=== PATIENT | male | born 1985 | race African-American/Black ===

== ENCOUNTER 2017-07-22 11:10 | Emergency (ER) | payer BC ==
[2017-07-22] MEDS ORDERED: Aspirin 81 MG Tab.Chew PO ONE (11:22)
[2017-07-22] MEDS ORDERED: Sodium Chloride 0.9% 2.5 ML Syringe FLUSH PRN (11:22)
[2017-07-22] MEDS ORDERED: Sodium Chloride 0.9% 10 ML Syringe FLUSH PRN (11:22)
--- NOTE | 2017-07-22 11:26 | EDM.PDOC ---
ED HPI GENERAL MEDICAL PROBLEM - General Chief Complaint: Chest Pain Stated Complaint: CHEST PAIN Time Seen by Provider: 07/22/17 11:21 - History of Present Illness INITIAL COMMENTS - FREE TEXT/NARRATIVE: HISTORY AND PHYSICAL: History of present illness: The patient is a 31-year-old healthy male with no significant past medical history but who does have a history of tobacco use and presents with complaints of left chest pressure/pain that started at 2 AM. 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 He says the pain is fine when he rests but when he takes a deep breath it seems to intensify. He is not short of breath he has no abdominal pain he has had no diaphoresis nausea or vomiting. He said that initially when he was at work he thought it was related to a recent chiropractic manipulation and it was more musculoskeletal. The patient has been eating and drinking normally and took no medication for the pain prior to coming here. The patient has no history of hypertension cardiac disease or pulmonary disease and is unsure of his lipid panel. He has no family history. Currently in the ED he says he does not have the pain unless he takes a deep breath. He has no leg pain or swelling. The patient does admit that he drinks a lot of caffeinated products. The patient denies that he felt lightheaded dizzy or had any presyncope symptoms wall the chest pain was ongoing Review of systems: As per history of present illness and below otherwise all systems reviewed and negative. Past medical history: As per history of present illness and as reviewed below otherwise noncontributory. Surgical history: As per history of present illness and as reviewed below otherwise noncontributory. Social history: No reported history of drug or alcohol abuse. Family history: As per history of present illness and as reviewed below otherwise noncontributory. Physical exam: Gen.: Well-developed very athletically fit patient was nontoxic-appearing and speaking clearly and easily. Vital signs of the note by me. It has been noted that he is on the hypertensive side. The patient is very anxious with conversation in the room both with me the stencil cutter and nursing staff. HEENT: Atraumatic, normocephalic, pupils reactive, negative for conjunctival pallor or scleral icterus, mucous membranes moist, throat clear, neck supple, nontender, trachea midline. Lungs: Clear to auscultation, breath sounds equal bilaterally, chest nontender. Heart: S1S2, regular, negative for clicks, rubs, or JVD. Abdomen: Soft, nondistended, nontender. Negative for masses or hepatosplenomegaly. Negative for costovertebral tenderness. Pelvis: Stable nontender. Genitourinary: Deferred. Rectal: Deferred. Extremities: Atraumatic, negative for cords or calf pain. Neurovascular unremarkable. No pedal edema or leg asymmetry Neuro: Awake, alert, oriented. Cranial nerves II through XII unremarkable. Cerebellum unremarkable. Motor and sensory unremarkable throughout. Exam nonfocal. Diagnostics: EKG CBC CMP INR troponin chest x-ray Therapeutics: IV O2 monitor aspirin Nitropaste Toradol Ativan 1120a: Dr. Browning our stencil cutter is here in the Emergency department and has reviewed the EKG and interviewed the patient; he feels that the patient has LVH and demonstrates Brugada syndrome although his history does not include syncope and has no family history. He agrees with my care plan of Nitropaste Toradol and aspirin and the workup and he would like a repeat EKG at 12 PM I performed repeat EKG and put a call out to Dr. Browning for review. I discussed all testing results with the patient and initially he did not want to stay in the hospital but he is aware of my concerns and his elevated blood pressure. His current blood pressure was 155/105. I will plan on admitting him observation to Dr. Riddle with consult to Dr. Browning. I will have Dr. Browning review the second EKG and advise on further management. At this point the patient is sleepy in the ER and is comfortable and is not is experiencing much pain. He is agreeable for admission. I discussed the case with Dr. Riddle at 12:37 PM and he accepts the patient for admission. I also notified Dr. Browning at 1240 and he will come and review the second EKG. Please see his formal consult for further information Impression: Chest pain rule out ACS, rule out Brugada syndrome; new hypertension Definitive disposition and diagnosis as appropriate pending reevaluation and review of above. chest Pain Score (Numeric/FACES): 6 - Related Data Allergies Allergy/AdvReac Type Severity Reaction Status Date / Time Penicillins Allergy Hives Verified 07/22/17 11:24 Home Meds: Home Meds . [No Known Home Meds] 07/22/17 [History] ED ROS GENERAL - Review of Systems Review Of Systems: ROS reveals no pertinent complaints other than HPI. ED EXAM, GENERAL - Physical Exam Exam: See Below (See dictation) Course - Vital Signs Last Recorded V/S: Last Vital Signs Temp 36.7 C 07/22/17 11:10 Pulse 75 07/22/17 12:16 Resp 14 07/22/17 12:16 BP 155/105 H 07/22/17 12:16 Pulse Ox 100 07/22/17 12:16 - Orders/Labs/Meds Orders: Active Orders 24 hr Category Date Time Status Patient Status [ADT] Stat ADT 07/22/17 12:43 Ordered Cardiac Monitoring [RC] . DIRECTED Care 07/22/17 11:21 Active EKG Documentation Completion [RC] STAT Care 07/22/17 11:21 Active EKG Documentation Completion [RC] STAT Care 07/22/17 12:00 Active Notify Provider Consults [RC] ASDIRECTED Care 07/22/17 11:22 Active Oxygen Therapy, ED [RC] ASDIRECTED Care 07/22/17 11:21 Active Pulse Oximetry [RC] ASDIRECTED Care 07/22/17 11:21 Active Consult to Physician [CONS] Stat Cons 07/22/17 11:22 Active Sodium Chloride 0.9% [Saline Flush] Med 07/22/17 11:22 Active 10 ml FLUSH ASDIRECTED PRN Sodium Chloride 0.9% [Saline Flush] Med 07/22/17 11:22 Active 2.5 ml FLUSH ASDIRECTED PRN Saline Lock Insert [OM.PC] Stat Oth 07/22/17 11:21 Ordered Medication Orders Sodium Chloride (Saline Flush) 10 ml FLUSH ASDIRECTED PRN PRN Reason: Keep Vein Open Last Admin: 07/22/17 11:48 Dose: 10 ml Sodium Chloride (Saline Flush) 2.5 ml FLUSH ASDIRECTED PRN PRN Reason: Keep Vein Open Last Admin: 07/22/17 11:50 Dose: 2.5 ml Labs: Laboratory Tests 07/22/17 07/22/17 07/22/17 Range/Units 11:25 11:25 11:25 WBC 3.94 L (4.0-11.0) K/uL RBC 5.06 (4.50-5.90) M/uL Hgb 15.7 (13.0-17.0) g/dL Hct 44.6 (38.0-50.0) % MCV 88.1 (80.0-98.0) fL MCH 31.0 (27.0-32.0) pg MCHC 35.2 (31.0-37.0) g/dL RDW Std Deviation 39.8 (28.0-62.0) fl RDW Coeff of Sonido 12 (11.0-15.0) % Plt Count 182 (150-400) K/uL MPV 10.00 (7.40-12.00) fL Neut % (Auto) 29.5 L (48.0-80.0) % Lymph % (Auto) 57.6 H (16.0-40.0) % [place] % (Auto) 9.1 (0.0-15.0) % Eos % (Auto) 2.8 (0.0-7.0) % Baso % (Auto) 1.0 (0.0-1.5) % Neut # (Auto) 1.2 L (1.4-5.7) K/uL Lymph # (Auto) 2.3 (0.6-2.4) K/uL [place] # (Auto) 0.4 (0.0-0.8) K/uL Eos # (Auto) 0.1 (0.0-0.7) K/uL Baso # (Auto) 0.0 (0.0-0.1) K/uL Nucleated RBC % 0.0 /100WBC Nucleated RBCs # 0 K/uL INR 1.12 H (0.86-1.11) Sodium 138 (136-146) mmol/L Potassium 3.9 (3.5-5.1) mmol/L Chloride 104 (98-110) mmol/L Carbon Dioxide 26 (21-31) mmol/L BUN 11 (6.0-23.0) mg/dL Creatinine 1.3 (0.6-1.5) mg/dL Est Cr Clr Drug Dosing TNP Estimated GFR (MDRD) > 60.0 ml/min Glucose 87 (60-110) mg/dL Calcium 9.8 (8.8-10.8) mg/dL Total Bilirubin 0.6 (0.1-1.5) mg/dL AST 30 (5-40) IU/L ALT 32 (8-54) IU/L Alkaline Phosphatase 70 (40-150) Troponin I (0.0-0.29) NG/ML Total Protein 7.7 (6.0-8.0) g/dL Albumin 4.4 (3.5-5.0) g/dL Globulin 3.3 (2.0-3.5) g/dL Albumin/Globulin Ratio 1.3 (1.3-2.8) 07/22/17 Range/Units 11:25 WBC (4.0-11.0) K/uL RBC (4.50-5.90) M/uL Hgb (13.0-17.0) g/dL Hct (38.0-50.0) % MCV (80.0-98.0) fL MCH (27.0-32.0) pg MCHC (31.0-37.0) g/dL RDW Std Deviation (28.0-62.0) fl RDW Coeff of Sonido (11.0-15.0) % Plt Count (150-400) K/uL MPV (7.40-12.00) fL Neut % (Auto) (48.0-80.0) % Lymph % (Auto) (16.0-40.0) % [place] % (Auto) (0.0-15.0) % Eos % (Auto) (0.0-7.0) % Baso % (Auto) (0.0-1.5) % Neut # (Auto) (1.4-5.7) K/uL Lymph # (Auto) (0.6-2.4) K/uL [place] # (Auto) (0.0-0.8) K/uL Eos # (Auto) (0.0-0.7) K/uL Baso # (Auto) (0.0-0.1) K/uL Nucleated RBC % /100WBC Nucleated RBCs # K/uL INR (0.86-1.11) Sodium (136-146) mmol/L Potassium (3.5-5.1) mmol/L Chloride (98-110) mmol/L Carbon Dioxide (21-31) mmol/L BUN (6.0-23.0) mg/dL Creatinine (0.6-1.5) mg/dL Est Cr Clr Drug Dosing Estimated GFR (MDRD) ml/min Glucose (60-110) mg/dL Calcium (8.8-10.8) mg/dL Total Bilirubin (0.1-1.5) mg/dL AST (5-40) IU/L ALT (8-54) IU/L Alkaline Phosphatase (40-150) Troponin I < 0.10 (0.0-0.29) NG/ML Total Protein (6.0-8.0) g/dL Albumin (3.5-5.0) g/dL Globulin (2.0-3.5) g/dL Albumin/Globulin Ratio (1.3-2.8) Meds: Medications Generic Name Dose Route Start Last Admin Trade Name Freq PRN Reason Stop Dose Admin Sodium Chloride 10 ml 07/22/17 11:22 07/22/17 11:48 Saline Flush FLUSH 10 ml ASDIRECTED PRN Administration Keep Vein Open Sodium Chloride 2.5 ml 07/22/17 11:22 07/22/17 11:50 Saline Flush FLUSH 2.5 ml ASDIRECTED PRN Administration Keep Vein Open Discontinued Medications Generic Name Dose Route Start Last Admin Trade Name Freq PRN Reason Stop Dose Admin Aspirin 324 mg 07/22/17 11:22 07/22/17 11:41 Aspirin PO 07/22/17 11:23 324 mg ONETIME ONE Administration Ketorolac Tromethamine 30 mg 07/22/17 11:39 07/22/17 11:44 Toradol IVPUSH 07/22/17 11:40 30 mg ONETIME ONE Administration Lorazepam 1 mg 07/22/17 11:43 07/22/17 11:48 Ativan IVPUSH 07/22/17 11:44 1 mg ONETIME ONE Administration Nitroglycerin 0.5 gm 07/22/17 11:39 07/22/17 11:43 Nitro-Bid 2% TOP 07/22/17 11:40 0.5 gm ONETIME ONE Administration Departure - Departure Time of Disposition: 12:45 Disposition: Refer to Observation Condition: Good Clinical Impression: Acute coronary syndrome Hypertension Qualifiers: Hypertension type: unspecified secondary hypertension Qualified Code(s): I15.9 - Secondary hypertension, unspecified; I15 - Secondary hypertension - Discharge Information Referrals: PCP,None [Primary Care Provider] - Forms: ED Department Discharge - My Orders Last 24 Hours: My Active Orders 07/22/17 11:21 Cardiac Monitoring [RC] . DIRECTED EKG Documentation Completion [RC] STAT Oxygen Therapy, ED [RC] ASDIRECTED Pulse Oximetry [RC] ASDIRECTED Saline Lock Insert [OM.PC] Stat 07/22/17 11:22 Notify Provider Consults [RC] ASDIRECTED Consult to Physician [CONS] Stat Sodium Chloride 0.9% [Saline Flush] 10 ml FLUSH ASDIRECTED PRN Sodium Chloride 0.9% [Saline Flush] 2.5 ml FLUSH ASDIRECTED PRN 07/22/17 12:00 EKG Documentation Completion [RC] STAT 07/22/17 12:43 Patient Status [ADT] Stat - Assessment/Plan Last 24 Hours: My Active Orders 07/22/17 11:21 Cardiac Monitoring [RC] . DIRECTED EKG Documentation Completion [RC] STAT Oxygen Therapy, ED [RC] ASDIRECTED Pulse Oximetry [RC] ASDIRECTED Saline Lock Insert [OM.PC] Stat 07/22/17 11:22 Notify Provider Consults [RC] ASDIRECTED Consult to Physician [CONS] Stat Sodium Chloride 0.9% [Saline Flush] 10 ml FLUSH ASDIRECTED PRN Sodium Chloride 0.9% [Saline Flush] 2.5 ml FLUSH ASDIRECTED PRN 07/22/17 12:00 EKG Documentation Completion [RC] STAT 07/22/17 12:43 Patient Status [ADT] Stat
[2017-07-22] MEDS ORDERED: Nitroglycerin 2% Oint 1 GM UD Packet TOP ONE (11:39)
[2017-07-22] MEDS ORDERED: Ketorolac 30 MG/ML SDV IVPUSH ONE (11:39)
[2017-07-22] MEDS ORDERED: LORazepam 2 MG/ML MDV IVPUSH ONE (11:43)
--- NOTE | 2017-07-22 11:54 | CR ---
EXAMINATION: Portable chest radiograph. HISTORY: Shortness of breath. FINDINGS: The trachea is midline. The cardiomediastinal silhouette is within normal limits. No pulmonary infilt rates, effusions or pneumothorax. Osseous structures appear unremarkable. IMPRESSION: No acute cardiopulmonary process.
[2017-07-22 12:02] LABS: CHLORIDE,CL 104 mmol/L (98-110); SODIUM,NA 138 mmol/L (136-146)
[2017-07-22 13:55] VITALS: BP 150/96
--- NOTE | 2017-07-23 13:20 | CONS ---
DATE OF CONSULTATION: DATE OF : 1985 PRIMARY CARE PHYSICIAN: None PCP REASON FOR CONSULTATION: Abnormal EKG. HISTORY OF PRESENT ILLNESS: This is a 31-year-old male, who has no cardiac history, presented to the hospital due to the chest pain. He stated that the chest pain started last night. It was when he was just resting, retrosternal area. It was sharp. No radiation. It was quite painful, 5/10 pain scale, worsening by deep breathing and with some shortness of breath. No dizziness. No passing out. No palpitation. His mother told him to come to the emergency room for "getting checked out." When he was here, his blood pressure was elevated at 190/134, and EKG was abnormal. He was given a nitroglycerin patch, and the blood pressure seemed to be improving at 150/90. He had never been diagnosed with hypertension or diabetes before. REVIEW OF SYSTEMS: Seemed to be negative 12-point review of systems except indicated in HPI. PAST MEDICAL HISTORY: The patient denied history of hypertension, history of heart attack, also history of cardiac arrest, syncope, or feeling dizzy. He may feel some palpitation in the past twice, but a very long time ago. He thought it might be some panic attack. ALLERGIES: He is allergic to penicillin. SOCIAL HISTORY: He was smoking probably half to one pack per day and drinks occasionally. He denied drug use. FAMILY HISTORY: He denied family history of sudden cardiac arrest or cardiac arrhythmia. MEDICATIONS: None. PHYSICAL EXAMINATION: VITAL SIGNS: Blood pressure 199/134, after nitroglycerin patch it was improving to 150/90; heart rate of 75; O2 saturation is 98 on 2 L; temperature 36.7. HEENT: Not pale. No jaundice. No JVD. HEART: Normal S1 and S2. No murmur. LUNGS: Clear. ABDOMEN: Soft and nontender. Bowel sounds present. No hepatosplenomegaly. LEGS: No edema. LABORATORY INVESTIGATIONS: CBC showed WBC 3.9, hematocrit 44, and platelets 182. INR 1.12. Sodium 138, potassium 3.9, chloride 104, bicarbonate 23, BUN 11, and creatinine 1.3. Troponin is negative. Liver function is negative as well. Chest x-ray: There is no acute cardiopulmonary process. EKG on July 22, 2017, shows sinus rhythm, heart rate of 83, VT interval is prolonged 237, and there are some ST changes in V1 and V2. Looks like Brugada- like ECG. QRS duration 143. ASSESSMENT AND PLAN: This is a 31-year-old male who presented to the emergency room with chest pain. His symptoms sound like pleuritic chest pain. We strongly recommended the patient to be observed in the hospital and cycle cardiac troponins; however, the patient refused. We also advised him regarding the adverse consequences if he was against medical advice. He verbalized understanding, and he took his own responsibility of his decision as well. However, with the blood pressure elevated, I gave him amlodipine 2.5 mg once a day for 2 weeks and recommended him to contact or find a primary care doctor for his high blood pressure as well as chest pain workup and also a warning if he developed worsening chest pain as well as other concerns, he should return to the emergency room for further workup. Regarding his abnormal EKG, it looks like Brugada-like EKG with a VT prolongation; however, he denies family history of Brugada syndrome, sudden cardiac arrest, or cardiac arrhythmia, and himself, he also denied history of syncope or cardiac arrest as well. At this point, for Brugada-like ECG asymptomatic, we just watch it for now; however, for his chest pain, he needs to be observed in the hospital for rule out acute coronary syndrome. JREOMY CONTRERAS /[id number]
== END 2017-07-22 13:59 | disposition left against medical advice (07) ==
LOC: MW.ED 11:10 → UNDOADMOB 12:45 → MW.ICU 12:45 → UNDODISOB 13:59
DX: R07.9 Chest pain, unspecified (principal); R94.31 Abnormal electrocardiogram [ECG] [EKG]; R03.0 Elevated blood-pressure reading, without diagnosis of hypertension; F17.210 Nicotine dependence, cigarettes, uncomplicated; Z88.0 Allergy status to penicillin; Z53.21 Procedure and treatment not carried out due to patient leaving prior to being seen by health care provider
CPT/HCPCS: 36415; 71010; 80053; 84484; 85025; 85610; 93005; 96374; 96375; 99285; A9270; J1885; J2060; 99283

== ENCOUNTER 2017-07-23 09:22 | Observation (INO) | payer BC ==
[2017-07-23] MEDS ORDERED: Sodium Chloride 0.9% 10 ML Syringe FLUSH PRN ×2 (09:36→10:55)
[2017-07-23] MEDS ORDERED: Sodium Chloride 0.9% 2.5 ML Syringe FLUSH PRN ×2 (09:36→10:55)
--- NOTE | 2017-07-23 09:41 | EDM.PDOC ---
ED HPI GENERAL MEDICAL PROBLEM - General Chief Complaint: General Stated Complaint: HIGH BP Time Seen by Provider: 07/23/17 09:29 - History of Present Illness INITIAL COMMENTS - FREE TEXT/NARRATIVE: HISTORY AND PHYSICAL: History of present illness: The patient is a 31-year-old male who presents to the ED after being here yesterday with persistent left-sided chest pain with breathing and elevated blood pressure. The patient was seen here yesterday and had a complete workup as well as a consultation with our public works director Dr. Nelson And it was recommended at that time --because he was having chest pain and he had an abnormal EKG-- that he should be admitted for observation for management of his blood pressure and a rule out cardiac. After lengthy discussions with myself the hospitalist and Dr. Browning as well as our nursing fence supervisor the patient insisted on signing out AGAINST MEDICAL ADVICE. He was given a prescription for antihypertensives by Dr. Browning which he did not fill. Patient presents now because he said he took his blood pressure at [facility] as prior to arrival and it was very elevated with the bottom number at 130 and he immediately went to the pharmacy to fill his prescription for his blood pressure pills. He said that while he was waiting for the prescription he felt very dizzy but he did not pass out or blackout. He has no neurologic changes no headache no visual changes no shortness of breath abdominal pain vomiting or any other symptomatology. He says he still has the chest discomfort when he takes a deep breath and that has been persistent through yesterday as well as previous to yesterday and unchanged. He has no leg pain or edema. Patient insists that the [id number] medication he has taken for muscle aches and pains that he wanted a gas station might be the culprit because he did some research on the Internet last night Review of systems: As per history of present illness and below otherwise all systems reviewed and negative. Past medical history: As per history of present illness and as reviewed below otherwise noncontributory. Surgical history: As per history of present illness and as reviewed below otherwise noncontributory. Social history: No reported history of drug or alcohol abuse. Family history: As per history of present illness and as reviewed below otherwise noncontributory. Physical exam: Gen.: Well-developed well-nourished man who is very fit appearing and is nontoxic speaking clearly and easily in the ED. His initial blood pressure on arrival was 201/118 HEENT: Atraumatic, normocephalic, negative for conjunctival pallor or scleral icterus, mucous membranes moist, throat clear, neck supple, nontender, trachea midline. Lungs: Clear to auscultation, breath sounds equal bilaterally, chest nontender. Heart: S1S2, regular, negative for clicks, rubs, or JVD. Abdomen: Soft, nondistended, nontender. NABS Pelvis: Stable nontender. Genitourinary: Deferred. Rectal: Deferred. Extremities: Atraumatic, negative for cords or calf pain. Neurovascular unremarkable. No pedal edema or leg asymmetry Neuro: Awake, alert, oriented. Cranial nerves II through XII unremarkable. Cerebellum unremarkable. Motor and sensory unremarkable throughout. Exam nonfocal. Diagnostics: EKG CBC CMP troponin UA Chest x-ray was performed yesterday so I will not repeat that Therapeutics: IV O2 monitor aspirin Nitropaste 0935A: Dr. Browning this year in ED as I've notified him of the patient's returned and he is currently seeing the patient and will make recommendations in a formal consult. I will discuss with him management of the blood pressure. 0947: Dr. Browning recommends reapplication of nitro paste as it was working yesterday. He tells me that the prescription he wrote for the patient yesterday was amlodipine 2.5 mg which again the patient did not fill. He will do a repeat formal consult and he does recommend admission to the hospital which I will discuss with our hospitalist Dr. Pisano. The patient is agreeable to admission today. 1000: Dr Pisano is aware of the case and is in the ER seeing the patient and has accepted the admission. I will follow-up all lab tests as they become available. Impression: Atypical chest pain with abnormal EKG and new hypertension Definitive disposition and diagnosis as appropriate pending reevaluation and review of above. Chest Pain Score (Numeric/FACES): 2 - Related Data Allergies Allergy/AdvReac Type Severity Reaction Status Date / Time Penicillins Allergy Hives Verified 07/23/17 09:24 Home Meds: Home Meds . [No Known Home Meds] 07/22/17 [History] Past Medical History - Past Health History Medical/Surgical History: Denies Medical/Surgical History Cardiovascular History: Reports: Heart Murmur, Stents Social & Family History - Family History Family Medical History: Noncontributory Cardiac: Reports: Bypass, Hypertension Other Cardiac Family History: Mother-CABG; HTN-brother - Tobacco Use Smoking Status *Q: Current Every Day Smoker Years of Tobacco use: 10 Packs/Tins Daily: 0.5 - Caffeine Use Caffeine Use: Reports: None - Recreational Drug Use Recreational Drug Use: No ED ROS GENERAL - Review of Systems Review Of Systems: ROS reveals no pertinent complaints other than HPI. ED EXAM, GENERAL - Physical Exam Exam: See Below (See dictation) Course - Vital Signs Last Recorded V/S: Last Vital Signs Temp 36.6 C 07/23/17 09:26 Pulse 87 07/23/17 09:26 Resp 18 07/23/17 09:26 BP 172/96 H 07/23/17 09:58 Pulse Ox 99 07/23/17 09:26 - Orders/Labs/Meds Orders: Active Orders 24 hr Category Date Time Status Patient Status [ADT] Stat ADT 07/23/17 09:51 Active Cardiac Monitoring [RC] . DIRECTED Care 07/23/17 09:36 Active EKG Documentation Completion [RC] STAT Care 07/23/17 09:36 Active Notify Provider Consults [RC] ASDIRECTED Care 07/23/17 09:41 Active Oxygen Therapy, ED [RC] ASDIRECTED Care 07/23/17 09:36 Active Pulse Oximetry [RC] ASDIRECTED Care 07/23/17 09:36 Active Consult to Physician [CONS] Stat Cons 07/23/17 09:41 Active COMPREHENSIVE METABOLIC PN,CMP [CHEM] Stat Lab 07/23/17 09:46 Received TROPONIN I [CHEM] Stat Lab 07/23/17 09:46 Received UA W/MICROSCOPIC [URIN] Stat Lab 07/23/17 09:36 Uncollected Sodium Chloride 0.9% [Saline Flush] Med 07/23/17 09:36 Active 10 ml FLUSH ASDIRECTED PRN Sodium Chloride 0.9% [Saline Flush] Med 07/23/17 09:36 Active 2.5 ml FLUSH ASDIRECTED PRN Saline Lock Insert [OM.PC] Stat Oth 07/23/17 09:36 Ordered Medication Orders Sodium Chloride (Saline Flush) 10 ml FLUSH ASDIRECTED PRN PRN Reason: Keep Vein Open Sodium Chloride (Saline Flush) 2.5 ml FLUSH ASDIRECTED PRN PRN Reason: Keep Vein Open Labs: Laboratory Tests 07/23/17 Range/Units 09:46 WBC 3.08 L (4.0-11.0) K/uL RBC 5.02 (4.50-5.90) M/uL Hgb 15.5 (13.0-17.0) g/dL Hct 44.0 (38.0-50.0) % MCV 87.6 (80.0-98.0) fL MCH 30.9 (27.0-32.0) pg MCHC 35.2 (31.0-37.0) g/dL RDW Std Deviation 39.4 (28.0-62.0) fl RDW Coeff of Sonido 12 (11.0-15.0) % Plt Count 170 (150-400) K/uL MPV 10.10 (7.40-12.00) fL Neut % (Auto) 37.4 L (48.0-80.0) % Lymph % (Auto) 47.4 H (16.0-40.0) % [place] % (Auto) 11.0 (0.0-15.0) % Eos % (Auto) 2.9 (0.0-7.0) % Baso % (Auto) 1.3 (0.0-1.5) % Neut # (Auto) 1.2 L (1.4-5.7) K/uL Lymph # (Auto) 1.5 (0.6-2.4) K/uL [place] # (Auto) 0.3 (0.0-0.8) K/uL Eos # (Auto) 0.1 (0.0-0.7) K/uL Baso # (Auto) 0.0 (0.0-0.1) K/uL Nucleated RBC % 0.0 /100WBC Nucleated RBCs # 0 K/uL Meds: Medications Generic Name Dose Route Start Last Admin Trade Name Freq PRN Reason Stop Dose Admin Sodium Chloride 10 ml 07/23/17 09:36 Saline Flush FLUSH ASDIRECTED PRN Keep Vein Open Sodium Chloride 2.5 ml 07/23/17 09:36 Saline Flush FLUSH ASDIRECTED PRN Keep Vein Open Discontinued Medications Generic Name Dose Route Start Last Admin Trade Name Cody PRN Reason Stop Dose Admin Aspirin 324 mg 07/23/17 09:47 Aspirin PO 07/23/17 09:48 ONETIME ONE Nitroglycerin 1 gm 07/23/17 09:47 Nitro-Bid 2% TOP 07/23/17 09:48 ONETIME ONE Departure - Departure Time of Disposition: 10:02 Disposition: Refer to Observation Condition: Good Clinical Impression: Hypertension Qualifiers: Hypertension type: unspecified Qualified Code(s): I10 - Essential (primary) hypertension Chest pain Qualifiers: Chest pain type: other chest pain Qualified Code(s): R07.89 - Other chest pain - Discharge Information Referrals: PCP,None [Primary Care Provider] - Forms: ED Department Discharge - My Orders Last 24 Hours: My Active Orders 07/23/17 09:36 Cardiac Monitoring [RC] . DIRECTED EKG Documentation Completion [RC] STAT Oxygen Therapy, ED [RC] ASDIRECTED Pulse Oximetry [RC] ASDIRECTED UA W/MICROSCOPIC [URIN] Stat Sodium Chloride 0.9% [Saline Flush] 10 ml FLUSH ASDIRECTED PRN Sodium Chloride 0.9% [Saline Flush] 2.5 ml FLUSH ASDIRECTED PRN Saline Lock Insert [OM.PC] Stat 07/23/17 09:41 Notify Provider Consults [RC] ASDIRECTED Consult to Physician [CONS] Stat 07/23/17 09:46 COMPREHENSIVE METABOLIC PN,CMP [CHEM] Stat TROPONIN I [CHEM] Stat 07/23/17 09:51 Patient Status [ADT] Stat - Assessment/Plan Last 24 Hours: My Active Orders 07/23/17 09:36 Cardiac Monitoring [RC] . DIRECTED EKG Documentation Completion [RC] STAT Oxygen Therapy, ED [RC] ASDIRECTED Pulse Oximetry [RC] ASDIRECTED UA W/MICROSCOPIC [URIN] Stat Sodium Chloride 0.9% [Saline Flush] 10 ml FLUSH ASDIRECTED PRN Sodium Chloride 0.9% [Saline Flush] 2.5 ml FLUSH ASDIRECTED PRN Saline Lock Insert [OM.PC] Stat 07/23/17 09:41 Notify Provider Consults [RC] ASDIRECTED Consult to Physician [CONS] Stat 07/23/17 09:46 COMPREHENSIVE METABOLIC PN,CMP [CHEM] Stat TROPONIN I [CHEM] Stat 07/23/17 09:51 Patient Status [ADT] Stat
[2017-07-23] MEDS ORDERED: Aspirin 81 MG Tab.Chew PO ONE (09:47)
[2017-07-23] MEDS ORDERED: Nitroglycerin 2% Oint 1 GM UD Packet TOP ONE (09:47)
[2017-07-23 10:24] LABS: CHLORIDE,CL 105 mmol/L (98-110); SODIUM,NA 138 mmol/L (136-146)
--- NOTE | 2017-07-23 10:47 | CONS ---
DATE OF CONSULTATION: DATE OF : 1985 PRIMARY CARE PHYSICIAN: None PCP REASON FOR CONSULTATION: Severe elevated blood pressure. HISTORY OF PRESENT ILLNESS: This is a 31-year-old male, who just left emergency room yesterday against medical advice for admission for observation for chest pain, rule out ACS. He was discharged from the emergency room against medical advice and also was given with medication, amlodipine 2.5 mg p.o. once a day for blood pressure. His blood pressure when he was leaving the emergency room was 150/80. He did not get it filled yet. However, this morning, he started feeling dizzy and then he went to [facility], he checked his blood pressure. It was very high 200/100, and he still has some chest pain. However, he stated that it was going away last night. Chest pain is still at the retrosternal area. No radiation, worsening by deep breath. Not positional related. EKG is showing Brugada-like EKG as well. Currently, the lab is still pending. PAST MEDICAL HISTORY: No prior cardiac history. MEDICATIONS: He was given the amlodipine 2.5 once a day; however, he has not filled it yet. ALLERGIES: He is allergic to penicillin. FAMILY HISTORY: He denied family history of sudden cardiac arrhythmia or heart attack. PHYSICAL EXAMINATION: VITAL SIGNS: Blood pressure is 204/118, heart rate of 87, temperature 36.6, respirations 18, O2 saturation 99 on room air. HEENT: No pallor, no jaundice, no JVD. HEART: Normal S1, S2. No murmur. LUNGS: Clear. ABDOMEN: Soft, nontender. Bowel sounds are present. No hepatosplenomegaly. EXTREMITIES: Legs, no edema. INVESTIGATIONS: Lab is still pending. EKGs show Brugada-like EKG still. ASSESSMENT AND PLAN: This is a 31-year-old male, who presented to the hospital with severely elevated blood pressure as well as atypical chest pains for cardiac angina. He should be admitted to the hospital for observation as well as for the blood pressure control and we will do the workup for acute coronary syndrome rule out and we will cycle cardiac enzymes as well as we will obtain echocardiogram as well as repeat EKG the next morning. For the blood pressure control, I recommended to use a nitro paste and transition with amlodipine. We will wait for the lab to see any target organ damage as well. If there is no target organ damage, we could probably slowly control his blood pressure. I will follow the patient. JEROMY CONTRERAS /[id number]
[2017-07-23] MEDS ORDERED: Ondansetron 4 MG Tab.DIS PO PRN (10:55)
[2017-07-23] MEDS ORDERED: Acetaminophen 325 MG Tab PO PRN (10:55)
[2017-07-23] MEDS ORDERED: Temazepam 15 MG Cap PO PRN (10:55)
[2017-07-23] MEDS ORDERED: Docusate Sodium 100 MG Cap PO PRN (10:55)
--- NOTE | 2017-07-23 11:00 | PCM.HP ---
H&P History of Present Illness - General Date of Service: 07/23/17 Admit Problem/Dx: Admission Diagnosis/Problem Admission Diagnosis/Problem Hypertension The patient is a 31-year-old gentleman presented to the emergency room initially yesterday with a complaint of chest pain as well as an abnormal EKG. The patient had signed out AGAINST MEDICAL ADVICE and has returned today to the emergency department with hypertensive emergency and atypical left-sided chest pain. The patient was initially consulted by cardiology who had thought that the patient had a Brugada type pattern to his EKG. Patient today says that he is having pain with some left-sided his chest and radiates down to his left arm. The patient has had the chest pain for the past several days and he has had no specific aggravating or relieving factors. The patient says at home that his blood pressure is normally been low. The patient's blood pressure has been lowered somewhat in the emergency room with the use of nitroglycerin. The patient has denied any dizziness or lightheadedness. He's had no nausea or vomiting. The patient says that he has been in good physical health otherwise. Also interestingly, the patient has no family history of sudden cardiac . He has used an energy supplement that also uses Kratom to help with pain. The patient has not been taking any medications chronically. He's been in his usual state of health up at the present time. The patient does not have a primary care physician. Source of Information: Patient History Limitations: Reports: No Limitations - History of Present Illness Onset of Symptoms: Reports: Sudden Duration of Symptoms: Reports: Day(s): Location: Reports: Chest Quality: Reports: Pressure, Sharp Severity: Moderate Improves with: Reports: None Worsens with: Reports: None Context: Reports: Sick Contact Associated Symptoms: Reports: No Other Symptoms Chest Pain Score (Numeric/FACES): 2 - Related Data Allergies/Adverse Reactions: Allergies Allergy/AdvReac Type Severity Reaction Status Date / Time Penicillins Allergy Hives Verified 07/23/17 09:24 Home Medications: Home Meds . [No Known Home Meds] 07/22/17 [History] Past Medical History - Past Health History Medical/Surgical History: Denies Medical/Surgical History HEENT History: Reports: None Cardiovascular History: Reports: Heart Murmur, Stents Respiratory History: Reports: None Gastrointestinal History: Reports: None Genitourinary History: Reports: None Musculoskeletal History: Reports: None Neurological History: Reports: None Psychiatric History: Reports: None Endocrine/Metabolic History: Reports: None Hematologic History: Reports: None Immunologic History: Reports: None - Infectious Disease History Infectious Disease History: Reports: None Social & Family History - Family History Family Medical History: Noncontributory Cardiac: Reports: Bypass, Hypertension Other Cardiac Family History: Mother-CABG; HTN-brother - Tobacco Use Smoking Status *Q: Current Every Day Smoker Years of Tobacco use: 10 Packs/Tins Daily: 0.5 - Caffeine Use Caffeine Use: Reports: None - Alcohol Use Alcohol Use History: Yes Alcohol Use in Last Twelve Months: Yes Alcohol Use Frequency: Weekly - Recreational Drug Use Recreational Drug Use: No H&P Review of Systems - Review of Systems: Review Of Systems: See Below General: Reports: No Symptoms HEENT: Reports: No Symptoms Pulmonary: Reports: No Symptoms Cardiovascular: Reports: Chest Pain Gastrointestinal: Reports: No Symptoms Genitourinary: Reports: No Symptoms Musculoskeletal: Reports: No Symptoms Skin: Reports: No Symptoms Psychiatric: Reports: No Symptoms Neurological: Reports: No Symptoms Hematologic/Lymphatic: Reports: No Symptoms Immunologic: Reports: No Symptoms Exam - Exam Exam: See Below - Vital Signs Vital Signs: Last Vital Signs Temp 36.6 C 07/23/17 09:26 Pulse 79 07/23/17 10:14 Resp 18 07/23/17 09:26 BP 162/103 H 07/23/17 10:14 Pulse Ox 99 07/23/17 10:14 Weight: 81.1 kg - Exam Quality Assessment: No: Supplemental Oxygen General: Alert, Oriented, Cooperative HEENT: Conjunctiva Clear, EOMI, Mucosa Moist & [place], Posterior Pharynx Clear Neck: Supple, Trachea Midline. No: Lymphadenopathy Lungs: Clear to Auscultation, Normal Respiratory Effort Cardiovascular: Regular Rate, Regular Rhythm, Normal S1, Normal S2 GI/Abdominal Exam: Normal Bowel Sounds, Soft, Non-Tender, No Distention Back Exam: Normal Inspection Extremities: Normal Inspection, Normal Range of Motion Skin: Warm, Dry, Intact Neurological: Cranial Nerves Intact, Reflexes Equal Bilateral Neuro Extensive - Mental Status: Alert, Oriented x3 Neuro Extensive - Motor, Sensory, Reflexes: CN II-XII Intact, Normal Gait Psychiatric: Alert, Normal Affect, Normal Mood - Patient Data Lab Results Last 24 hrs: Laboratory Results - last 24 hr 07/23/17 Range/Units 10:02 Urine Color YELLOW Urine Appearance CLEAR Urine pH 7.5 (5.0-8.0) Ur Specific [place] <= 1.005 (1.001-1.035) Urine Protein NEGATIVE (NEGATIVE) mg/dL Urine Glucose (UA) NEGATIVE (NEGATIVE) mg/dL Urine Ketones NEGATIVE (NEGATIVE) mg/dL Urine Occult Blood NEGATIVE (NEGATIVE) Urine Nitrite NEGATIVE (NEGATIVE) Urine Bilirubin NEGATIVE (NEGATIVE) Urine Urobilinogen 0.2 (<2.0) EU/dL Ur Leukocyte Esterase NEGATIVE (NEGATIVE) Urine RBC NONE SEEN (0-2/HPF) Urine WBC 0-1 (0-5/HPF) Ur Epithelial Cells RARE (NONE-FEW) Urine Bacteria RARE (NEGATIVE) Result Diagrams: 07/23/17 09:46 07/23/17 09:46 *Q Meaningful Use (ADM) - VTE *Q VTE Criteria *Q: - VTE Risk Assess *Q Each Risk Factor Represents 1 Point: None Total Score 1 Point Risk Factors: 0 Each Risk Factor Represents 2 Points: None Total Score 2 Point Risk Factors: 0 Each Risk Factor Represents 3 Points: None Total Score 3 Point Risk Factors: 0 - Stroke *Q Stroke Criteria *Q: - AMI *Q AMI Criteria *Q: - Problem List (1) Hypertension SNOMED Code(s): 03317729 ICD Code: I10 - ESSENTIAL (PRIMARY) HYPERTENSION Status: Acute Priority: High Current Visit: Yes Qualifiers: Hypertension type: other secondary hypertension Qualified Code(s): I15.8 - Other secondary hypertension (2) Chest pain SNOMED Code(s): 51626015 ICD Code: R07.9 - CHEST PAIN, UNSPECIFIED Status: Acute Priority: High Current Visit: Yes Qualifiers: Chest pain type: other chest pain Qualified Code(s): R07.89 - Other chest pain; R07.8 - Other chest pain (3) Tobacco abuse SNOMED Code(s): 908075463, 680063088 ICD Code: Z72.0 - TOBACCO USE Status: Chronic Priority: Medium Current Visit: Yes (4) Leukopenia SNOMED Code(s): 71015083 ICD Code: D72.819 - DECREASED WHITE BLOOD CELL COUNT, UNSPECIFIED Status: Chronic Priority: Medium Current Visit: Yes Qualifiers: Leukopenia type: neutropenia Neutropenia type: congenital Qualified Code( s): 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 Problem List Initiated/Reviewed/Updated: Yes Orders Last 24hrs: Active Orders 24 hr Category Date Time Status Patient Status [ADT] Routine ADT 07/23/17 10:55 Ordered Oxygen Therapy [RC] PRN Care 07/23/17 10:55 Ordered Up ad Marily [RC] ASDIRECTED Care 07/23/17 10:55 Ordered VTE/DVT Education [RC] PER UNIT ROUTINE Care 07/23/17 10:55 Ordered Vital Signs [RC] Q4H Care 07/23/17 10:55 Ordered Regular Diet [DIET] Diet 07/23/17 Lunch Ordered Acetaminophen [Tylenol] Med 07/23/17 10:55 Ordered 650 mg PO Q4H PRN Docusate Sodium [Colace] Med 07/23/17 10:55 Ordered 100 mg PO BID PRN Enoxaparin [Lovenox] Med 07/23/17 11:00 Ordered 40 mg SUBCUT DAILY Morphine Med 07/23/17 10:55 Ordered 2 mg IVPUSH Q2H PRN Nicotine [Habitrol] Med 07/23/17 11:00 Ordered 14 mg TRDERM DAILY Ondansetron [Zofran ODT] Med 07/23/17 10:55 Ordered 4 mg PO Q6H PRN Sodium Chloride 0.9% [Saline Flush] Med 07/23/17 10:55 Ordered 10 ml FLUSH ASDIRECTED PRN Sodium Chloride 0.9% [Saline Flush] Med 07/23/17 10:55 Ordered 2.5 ml FLUSH ASDIRECTED PRN Temazepam [Restoril] Med 07/23/17 10:55 Ordered 15 mg PO BEDTIME PRN oxyCODONE Med 07/23/17 10:55 Ordered 5 mg PO Q4H PRN Saline Lock Insert [OM.PC] Routine Oth 07/23/17 10:55 Ordered Resuscitation Status Routine Resus Stat 07/23/17 10:55 Ordered Medication Orders Acetaminophen (Tylenol) 650 mg PO Q4H PRN PRN Reason: Pain (Mild 1-3)/fever Morphine Sulfate (Morphine) 2 mg IVPUSH Q2H PRN PRN Reason: Pain (severe 7-10) Stop: 07/24/17 10:58 Ondansetron HCl (Zofran Odt) 4 mg PO Q6H PRN PRN Reason: nausea, able to take PO Oxycodone HCl (Oxycodone) 5 mg PO Q4H PRN PRN Reason: Pain (moderate 4-6) Sodium Chloride (Saline Flush) 10 ml FLUSH ASDIRECTED PRN PRN Reason: Keep Vein Open Last Admin: 07/23/17 10:05 Dose: 10 ml Sodium Chloride (Saline Flush) 2.5 ml FLUSH ASDIRECTED PRN PRN Reason: Keep Vein Open Last Admin: 07/23/17 10:06 Dose: 2.5 ml Assessment/Plan Comment:: The patient is a 31-year-old gentleman who will be admitted to observation. The patient will be admitted on telemetry secondary to his abnormal EKG pattern. Patient also has been consulted with cardiology and cardiology will follow. I placed the patient on a regular diet as tolerated. He will be anticoagulated for DVT prophylaxis with Lovenox. The patient's latest blood pressure while in the emergency department was 162/103 mmHg. The patient's blood pressure be lowered slowly in order to prevent symptoms such as dizziness lightheadedness or other types of endorgan damage. The patient does not seem to have at this time any evidence of endorgan damage secondary to hypertension. This may be related to the energy drink as well as the use of the Kratom. The patient also has a history of tobacco abuse and I have prescribed nicotine patches 14 mg by mouth daily if he needs it for tobacco withdrawal symptoms. 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 The patient has no signs or symptoms that would be associated with infection. The patient will be admitted under observation status and if he is doing better and has had sufficient improvement in Ms. EKG as well as his hypertension he will be discharged with recommendation to follow-up likely tomorrow. The patient's overall treatment plan will be adjusted as conditions and information indicates.
[2017-07-23] MEDS: oxyCODONE 5 MG Tab PO PRN ×2 (14:18→18:47)
[2017-07-23] MEDS ORDERED: LORazepam 2 MG/ML MDV IVPUSH ONE ×3 (17:15→23:35)
[2017-07-23] MEDS: Nicotine 14 MG/24 Hr Patch TRDERM SCH (18:15)
[2017-07-23] MEDS: Enoxaparin 40 MG/0.4 ML Syringe SUBCUT SCH (18:15)
[2017-07-23] MEDS: Morphine 10 MG/ML Syringe IVPUSH PRN (20:15)
[2017-07-24] MEDS: Morphine 10 MG/ML Syringe IVPUSH PRN (00:39)
[2017-07-24] MEDS: Nicotine 14 MG/24 Hr Patch TRDERM SCH (08:17)
[2017-07-24] MEDS: Enoxaparin 40 MG/0.4 ML Syringe SUBCUT SCH (08:17)
[2017-07-24 09:25] VITALS: BP 176/83
[2017-07-24] MEDS ORDERED: Cyclobenzaprine 10 MG Tab PO SCH (09:32)
[2017-07-24] MEDS ORDERED: amLODIPine 5 MG Tab PO SCH (09:34)
[2017-07-24] MEDS ORDERED: LORazepam 0.5 MG Tab PO PRN (09:35)
--- NOTE | 2017-07-24 10:41 | PCM.DCSUM1 ---
Discharge Summary - Hospital Course Free Text/Narrative:: patient was admitted secondary to hypertension and abnormal EKG. - Discharge Data Discharge Date: 07/24/17 Discharge Disposition: Home, Self-Care 01 Condition: Good - Discharge Diagnosis/Problem(s) (1) Aortic valve regurgitation SNOMED Code(s): 25336420 ICD Code: I35.1 - NONRHEUMATIC AORTIC (VALVE) INSUFFICIENCY Status: Chronic Priority: High Qualifiers: Cardiac valve disease etiology: nonrheumatic Qualified Code(s): I35.1 - Nonrheumatic aortic (valve) insufficiency (2) Left ventricular hypertrophy SNOMED Code(s): 96063708 ICD Code: I51.7 - CARDIOMEGALY Status: Chronic Priority: High (3) Hypertension SNOMED Code(s): 32900562 ICD Code: I10 - ESSENTIAL (PRIMARY) HYPERTENSION Status: Chronic Priority : High Qualifiers: Hypertension type: other secondary hypertension Qualified Code(s): I15.8 - Other secondary hypertension (4) Chest pain SNOMED Code(s): 58977363 ICD Code: R07.9 - CHEST PAIN, UNSPECIFIED Status: Chronic Priority: Medium Qualifiers: Chest pain type: other chest pain Qualified Code(s): R07.89 - Other chest pain; R07.8 - Other chest pain (5) Tobacco abuse SNOMED Code(s): 463614941, 113597000 ICD Code: Z72.0 - TOBACCO USE Status: Chronic Priority: Medium (6) Leukopenia SNOMED Code(s): 66445253 ICD Code: D72.819 - DECREASED WHITE BLOOD CELL COUNT, UNSPECIFIED Status: Chronic Priority: Medium Qualifiers: Leukopenia type: neutropenia Neutropenia type: congenital Qualified Code( s): 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 The patient will be admitted on telemetry secondary to his abnormal EKG pattern. Patient also has been consulted with cardiology and cardiology will follow. I placed the patient on a regular diet as tolerated. He will be anticoagulated for DVT prophylaxis with Lovenox. The patient's latest blood pressure while in the emergency department was 162/103 mmHg. The patient's blood pressure be lowered slowly in order to prevent symptoms such as dizziness lightheadedness or other types of endorgan damage. The patient does not seem to have at this time any evidence of endorgan damage secondary to hypertension. This may be related to the energy drink as well as the use of the Kratom. The patient is a 31-year-old gentleman who is admitted on July 23, 2017 secondary to a significantly abnormal EKG which was thought to be secondary to a Brugada pattern. The patient had been evaluated by cardiology. Patient was having some left-sided chest pain and initially is thought secondary to vitamin and energy supplements that he had taken. Patient had denied any dizziness lightheadedness on presentation. The patient was monitored very closely and a 2-D echocardiogram was obtained which did show evidence of severe aortic valve regurgitation. The patient is to follow-up with cardiology as well as his primary care physician. The patient also at this time is very anxious to leave. The patient's vital signs have shown hypertension and he has been anxious. His blood pressure is 176/83 mmHg and the patient did not want any antihypertensive medications at this time. I've recommended that the patient continue to check with his blood pressures and with his primary care physician. He is also been strongly counseled to stop smoking and using energy drinks. - Patient Instructions Diet: Heart Healthy Diet Activity: As Tolerated - Discharge Plan Prescriptions/Med Rec: amLODIPine [Norvasc] 10 mg PO DAILY #30 tablet Cyclobenzaprine [Flexeril] 10 mg PO TID #30 tablet LORazepam [Ativan] 0.5 mg PO BID PRN #14 tablet PRN Reason: Anxiety Home Medications: Home Meds Cyclobenzaprine [Flexeril] 10 mg PO TID #30 tablet 07/24/17 [Rx] LORazepam [Ativan] 0.5 mg PO BID PRN #14 tablet 07/24/17 [Rx] amLODIPine [Norvasc] 10 mg PO DAILY #30 tablet 07/24/17 [Rx] Patient Handouts: Generalized Anxiety Disorder, Cyclobenzaprine tablets, Nonspecific Chest Pain, [id number], Amlodipine tablets, Lorazepam tablets Referrals: Alban Pisano DO [Physician] - 07/29/17 1:00 pm Calista Bill MD [Physician] - 07/31/17 10:30 am - Discharge Summary/Plan Comment DC Time >30 min.: Yes - General Info Date of Service: 07/24/17 Functional Status: Reports: Pain Controlled - Review of Systems General: Reports: No Symptoms HEENT: Reports: No Symptoms Pulmonary: Reports: No Symptoms Cardiovascular: Reports: No Symptoms Gastrointestinal: Reports: No Symptoms Genitourinary: Reports: No Symptoms Musculoskeletal: Reports: No Symptoms Skin: Reports: No Symptoms Neurological: Reports: No Symptoms Psychiatric: Reports: No Symptoms - Patient Data Vitals - Most Recent: Last Vital Signs Temp 36.5 C 07/24/17 08:00 Pulse 81 07/24/17 09:25 Resp 18 07/24/17 09:25 BP 176/83 H 07/24/17 10:29 Pulse Ox 100 07/24/17 09:25 Weight - Most Recent: 81.1 kg I&O - Last 24 hours: Intake & Output 07/23/17 07/24/17 07/24/17 22:59 06:59 14:59 Intake Total 600 480 Output Total 950 450 Balance -350 30 Lab Results - Last 24 hrs: Laboratory Results - last 24 hr 07/23/17 07/23/17 07/23/17 Range/Units 10:02 10:02 17:43 Troponin I < 0.10 (0.0-0.29) NG/ML Urine RBC NONE SEEN (0-2/HPF) Urine WBC 0-1 (0-5/HPF) Ur Epithelial Cells RARE (NONE-FEW) Urine Bacteria RARE (NEGATIVE) Urine Opiates Screen NEGATIVE (NEGATIVE) Ur Oxycodone Screen NEGATIVE (NEGATIVE) Urine Methadone Screen NEGATIVE (NEGATIVE) Ur Barbiturates Screen NEGATIVE (NEGATIVE) Ur Phencyclidine Scrn NEGATIVE (NEGATIVE) Ur Amphetamine Screen NEGATIVE (NEGATIVE) U Methamphetamines Scrn NEGATIVE (NEGATIVE) U Benzodiazepines Scrn NEGATIVE (NEGATIVE) U Cocaine Metab Screen NEGATIVE (NEGATIVE) U Marijuana (THC) Screen NEGATIVE (NEGATIVE) 07/23/17 Range/Units 23:40 Troponin I < 0.10 (0.0-0.29) NG/ML Urine RBC (0-2/HPF) Urine WBC (0-5/HPF) Ur Epithelial Cells (NONE-FEW) Urine Bacteria (NEGATIVE) Urine Opiates Screen (NEGATIVE) Ur Oxycodone Screen (NEGATIVE) Urine Methadone Screen (NEGATIVE) Ur Barbiturates Screen (NEGATIVE) Ur Phencyclidine Scrn (NEGATIVE) Ur Amphetamine Screen (NEGATIVE) U Methamphetamines Scrn (NEGATIVE) U Benzodiazepines Scrn (NEGATIVE) U Cocaine Metab Screen (NEGATIVE) U Marijuana (THC) Screen (NEGATIVE) Med Orders - Current: Current Medications Acetaminophen (Tylenol) 650 mg PO Q4H PRN PRN Reason: Pain (Mild 1-3)/fever Amlodipine Besylate (Norvasc) 10 mg PO DAILY [facility] Last Admin: 07/24/17 10:29 Dose: 10 mg Cyclobenzaprine HCl (Flexeril) 10 mg PO TID [facility] Last Admin: 07/24/17 10:29 Dose: 10 mg Docusate Sodium (Colace) 100 mg PO BID PRN PRN Reason: Constipation Enoxaparin Sodium (Lovenox) 40 mg SUBCUT DAILY [facility] Last Admin: 07/24/17 08:17 Dose: Not Given Lorazepam (Ativan) 0.5 mg PO BID PRN PRN Reason: Anxiety Morphine Sulfate (Morphine) 2 mg IVPUSH Q2H PRN PRN Reason: Pain (severe 7-10) Stop: 07/24/17 10:58 Last Admin: 07/24/17 00:39 Dose: 2 mg Nicotine (Habitrol) 14 mg TRDERM DAILY [facility] Last Admin: 07/24/17 08:17 Dose: Not Given Ondansetron HCl (Zofran Odt) 4 mg PO Q6H PRN PRN Reason: nausea, able to take PO Oxycodone HCl (Oxycodone) 5 mg PO Q4H PRN PRN Reason: Pain (moderate 4-6) Last Admin: 07/23/17 18:47 Dose: 5 mg Sodium Chloride (Saline Flush) 10 ml FLUSH ASDIRECTED PRN PRN Reason: Keep Vein Open Last Admin: 07/23/17 10:05 Dose: 10 ml Sodium Chloride (Saline Flush) 2.5 ml FLUSH ASDIRECTED PRN PRN Reason: Keep Vein Open Last Admin: 07/23/17 10:06 Dose: 2.5 ml Sodium Chloride (Saline Flush) 10 ml FLUSH ASDIRECTED PRN PRN Reason: Keep Vein Open Sodium Chloride (Saline Flush) 2.5 ml FLUSH ASDIRECTED PRN PRN Reason: Keep Vein Open Temazepam (Restoril) 15 mg PO BEDTIME PRN PRN Reason: Sleep Discontinued Medications Amlodipine Besylate (Norvasc) 10 mg PO DAILY [facility] Aspirin (Aspirin) 324 mg PO ONETIME ONE Stop: 07/23/17 09:48 Last Admin: 07/23/17 10:05 Dose: 324 mg Lorazepam (Ativan) 0.5 mg IVPUSH ONETIME ONE Stop: 07/23/17 17:16 Last Admin: 07/23/17 17:15 Dose: 0.5 mg Lorazepam (Ativan) 0.5 mg IVPUSH ONETIME ONE Stop: 07/23/17 21:41 Lorazepam (Ativan) 0.5 mg IVPUSH ONETIME ONE Stop: 07/23/17 23:36 Last Admin: 07/23/17 23:27 Dose: 0.5 mg Nitroglycerin (Nitro-Bid 2%) 1 gm TOP ONETIME ONE Stop: 07/23/17 09:48 Last Admin: 07/23/17 10:04 Dose: 1 gm - Exam Quality Assessment: Denies: Supplemental Oxygen General: Reports: Alert, Oriented HEENT: Reports: Pupils Equal, Pupils Reactive, EOMI, Mucous Membr. Moist/[place] Neck: Reports: Supple Lungs: Reports: Clear to Auscultation, Normal Respiratory Effort Cardiovascular: Reports: Regular Rate, Regular Rhythm, Murmurs (systolic, aortic murmur, grade 3/6) GI/Abdominal Exam: Normal Bowel Sounds, Soft, Non-Tender, No Distention Rectal ([place]) Exam: Normal Exam Back Exam: Reports: Normal Inspection Extremities: Normal Inspection, Normal Range of Motion, No Pedal Edema Skin: Reports: Warm, Dry Neurological: Reports: No New Focal Deficit, Normal Gait Psy/Mental Status: Reports: Alert, Normal Affect, Normal Mood *Q Meaningful Use (DIS) - VTE *Q VTE Criteria *Q: - Stroke *Q Stroke Criteria *Q: - AMI *Q AMI Criteria *Q:
--- NOTE | 2017-07-24 11:06 | PCM.PN ---
- General Info Date of Service: 07/24/17 Admission Dx/Problem (Free Text): 31M with chest pain abnormal ECG elevated BP Functional Status: Reports: Pain Controlled - Review of Systems General: Reports: No Symptoms HEENT: Reports: No Symptoms Pulmonary: Reports: No Symptoms Cardiovascular: Reports: No Symptoms Gastrointestinal: Reports: No Symptoms Genitourinary: Reports: No Symptoms Musculoskeletal: Reports: No Symptoms Skin: Reports: No Symptoms Neurological: Reports: No Symptoms Psychiatric: Reports: No Symptoms - Patient Data Vitals - Most Recent: Last Vital Signs Temp 36.5 C 07/24/17 08:00 Pulse 81 07/24/17 09:25 Resp 18 07/24/17 09:25 BP 176/83 H 07/24/17 10:29 Pulse Ox 100 07/24/17 09:25 Weight - Most Recent: 81.1 kg I&O - Last 24 Hours: Intake & Output 07/23/17 07/24/17 07/24/17 22:59 06:59 14:59 Intake Total 600 480 Output Total 950 450 Balance -350 30 Lab Results Last 24 Hours: Laboratory Results - last 24 hr 07/23/17 07/23/17 07/23/17 Range/Units 10:02 17:43 23:40 Troponin I < 0.10 < 0.10 (0.0-0.29) NG/ML Urine Opiates Screen NEGATIVE (NEGATIVE) Ur Oxycodone Screen NEGATIVE (NEGATIVE) Urine Methadone Screen NEGATIVE (NEGATIVE) Ur Barbiturates Screen NEGATIVE (NEGATIVE) Ur Phencyclidine Scrn NEGATIVE (NEGATIVE) Ur Amphetamine Screen NEGATIVE (NEGATIVE) U Methamphetamines Scrn NEGATIVE (NEGATIVE) U Benzodiazepines Scrn NEGATIVE (NEGATIVE) U Cocaine Metab Screen NEGATIVE (NEGATIVE) U Marijuana (THC) Screen NEGATIVE (NEGATIVE) Med Orders - Current: Current Medications Acetaminophen (Tylenol) 650 mg PO Q4H PRN PRN Reason: Pain (Mild 1-3)/fever Amlodipine Besylate (Norvasc) 10 mg PO DAILY [facility] Last Admin: 07/24/17 10:29 Dose: 10 mg Cyclobenzaprine HCl (Flexeril) 10 mg PO TID [facility] Last Admin: 07/24/17 10:29 Dose: 10 mg Docusate Sodium (Colace) 100 mg PO BID PRN PRN Reason: Constipation Enoxaparin Sodium (Lovenox) 40 mg SUBCUT DAILY [facility] Last Admin: 07/24/17 08:17 Dose: Not Given Lorazepam (Ativan) 0.5 mg PO BID PRN PRN Reason: Anxiety Last Admin: 07/24/17 10:43 Dose: 0.5 mg Nicotine (Habitrol) 14 mg TRDERM DAILY [facility] Last Admin: 07/24/17 08:17 Dose: Not Given Ondansetron HCl (Zofran Odt) 4 mg PO Q6H PRN PRN Reason: nausea, able to take PO Oxycodone HCl (Oxycodone) 5 mg PO Q4H PRN PRN Reason: Pain (moderate 4-6) Last Admin: 07/23/17 18:47 Dose: 5 mg Sodium Chloride (Saline Flush) 10 ml FLUSH ASDIRECTED PRN PRN Reason: Keep Vein Open Last Admin: 07/23/17 10:05 Dose: 10 ml Sodium Chloride (Saline Flush) 2.5 ml FLUSH ASDIRECTED PRN PRN Reason: Keep Vein Open Last Admin: 07/23/17 10:06 Dose: 2.5 ml Sodium Chloride (Saline Flush) 10 ml FLUSH ASDIRECTED PRN PRN Reason: Keep Vein Open Sodium Chloride (Saline Flush) 2.5 ml FLUSH ASDIRECTED PRN PRN Reason: Keep Vein Open Temazepam (Restoril) 15 mg PO BEDTIME PRN PRN Reason: Sleep Discontinued Medications Amlodipine Besylate (Norvasc) 10 mg PO DAILY [facility] Aspirin (Aspirin) 324 mg PO ONETIME ONE Stop: 07/23/17 09:48 Last Admin: 07/23/17 10:05 Dose: 324 mg Lorazepam (Ativan) 0.5 mg IVPUSH ONETIME ONE Stop: 07/23/17 17:16 Last Admin: 07/23/17 17:15 Dose: 0.5 mg Lorazepam (Ativan) 0.5 mg IVPUSH ONETIME ONE Stop: 07/23/17 21:41 Lorazepam (Ativan) 0.5 mg IVPUSH ONETIME ONE Stop: 07/23/17 23:36 Last Admin: 07/23/17 23:27 Dose: 0.5 mg Morphine Sulfate (Morphine) 2 mg IVPUSH Q2H PRN PRN Reason: Pain (severe 7-10) Stop: 07/24/17 10:58 Last Admin: 07/24/17 00:39 Dose: 2 mg Nitroglycerin (Nitro-Bid 2%) 1 gm TOP ONETIME ONE Stop: 07/23/17 09:48 Last Admin: 07/23/17 10:04 Dose: 1 gm - Exam General: Alert, Oriented HEENT: Pupils Equal, Pupils Reactive, EOMI Neck: Supple Lungs: Clear to Auscultation Cardiovascular: Regular Rate, Regular Rhythm, Murmurs GI/Abdominal Exam: Normal Bowel Sounds, Soft, Non-Tender (Male) Exam: No Hernia, Normal Inspection Back Exam: Normal Inspection Extremities: Normal Inspection EKG INTERPRETATION Rhythm: NSR - Problem List Review Problem List Initiated/Reviewed/Updated: Yes - My Orders Last 24 Hours: My Active Orders 07/23/17 13:40 Echo Comp wo Cont [US] Routine - Plan Plan:: 31M severe HTN with chest pain 1. chest pain, ACS has been ruled out. 2. abnormal ECG: it showed possibly brugada type ECG with prolong GA, he denied SCD syncope, of Fhx of SCD syncope or arrhythmia, he seemed to be asymptomatic for Brugada, will wathch for now 3. elevated BP with mild LVH his EF seemed to preserved 60% with mild LVH, his elevated BP probably be long standing evidence by LVH, he stated that he has been using Kratom for a month could definitely raise his BP, he would need antiBP med, he is on now amlodipine 10 daily, I spent lengthy time to emphasize the importance of medication and dietary compliance. I also explained the importance of regular exercise, maintain physically active, plant-based diet. I also emphasized for the need of self monitoring for weight and BP. He would also need work up for secondary causes of HTN this can be done as outpt 3 AR, at least moderate: he is not in HF, now his aortic valve looked tricuspid , normal aortic root, I could not appreciate any vegetation, he also denied IVDU , urine drug was negative. He may probably need ANGELO, but this can be done as outpt.
[2017-07-25] MEDS ORDERED: amLODIPine 5 MG Tab PO SCH (09:00)
--- NOTE | 2017-07-30 16:33 | ECHO ---
EXAM DATE: 07/23/17 PATIENT'S AGE: 31 The echocardiogram report can be seen in this patient's EMR (Electronic Medical Record) in the Reports section. The report has also been scanned into PACS. ALBINO
== END 2017-07-24 10:45 | disposition home or self-care (01) ==
LOC: MW.ED 09:22 → MW.MS 09:51
PROVIDERS: ADMIT Internal Medicine; ATTEND Internal Medicine
DX: I16.1 Hypertensive emergency (principal); I15.8 Other secondary hypertension; I35.1 Nonrheumatic aortic (valve) insufficiency; R07.89 Other chest pain; F17.210 Nicotine dependence, cigarettes, uncomplicated; D70.0 Congenital agranulocytosis; Z88.0 Allergy status to penicillin; Z82.49 Family history of ischemic heart disease and other diseases of the circulatory system
CPT/HCPCS: 36415; 80053; 80305; 81001; 84484; 85025; 93005; 93306; 96374; 96375; 96376; 99285; A9270; G0378; J2060; J2270; 99283

== ENCOUNTER 2017-07-25 19:30 | Emergency (ER) | payer BC ==
--- NOTE | 2017-07-25 20:07 | EDM.PDOC ---
ED HPI GENERAL MEDICAL PROBLEM - General Chief Complaint: Neuro Symptoms/Deficits Stated Complaint: HIGH BP Time Seen by Provider: 07/25/17 19:50 Source of Information: Reports: Patient History Limitations: Reports: No Limitations - History of Present Illness INITIAL COMMENTS - FREE TEXT/NARRATIVE: History of present illness: 31-year-old male comes in with concerns of numbness and tingling to his right arm. Review of systems: As per history of present illness and below otherwise all systems reviewed and negative. Past medical history: As per history of present illness and as reviewed below otherwise noncontributory. Surgical history: As per history of present illness and as reviewed below otherwise noncontributory. Social history: No reported history of drug or alcohol abuse. Family history: As per history of present illness and as reviewed below otherwise noncontributory. Physical exam: HEENT: Atraumatic, normocephalic, pupils reactive, negative for conjunctival pallor or scleral icterus, mucous membranes moist, throat clear, neck supple, nontender, trachea midline. Lungs: Clear to auscultation, breath sounds equal bilaterally, chest nontender. Heart: S1S2, regular, negative for clicks, rubs, or JVD. Abdomen: Soft, nondistended, nontender. Negative for masses or hepatosplenomegaly. Negative for costovertebral tenderness. Pelvis: Stable nontender. Genitourinary: Deferred. Rectal: Deferred. Extremities: Atraumatic, negative for cords or calf pain. Neurovascular unremarkable. Neuro: Awake, alert, oriented. Cranial nerves II through XII unremarkable. Cerebellum unremarkable. Motor and sensory unremarkable throughout. Exam nonfocal. Had a protracted conversation with the patient who acknowledged that he is quite anxious about his diagnosis of hypertension and he been working out and he had taken some supplements and that he's got numbness and tingling to his right hand but as we had a dialogue he acknowledges that it has receded and he doesn't desire further repetitive workup that he feels is necessary and he states he feels that he just panicked. Patient does have a follow-up appointment with the food handler on July 29 and he will follow through without for further plan of care and further diagnostic evaluation Diagnostics: [] Therapeutics: [] Impression: [#1 anxiety ] Plan: [Follow-up with food handler as already scheduled ] Definitive disposition and diagnosis as appropriate pending reevaluation and review of above. right hand Pain Score (Numeric/FACES): 2 - Related Data Allergies Allergy/AdvReac Type Severity Reaction Status Date / Time Penicillins Allergy Hives Verified 07/25/17 19:42 Home Meds: Home Meds Cyclobenzaprine [Flexeril] 10 mg PO TID #30 tablet 07/24/17 [Rx] LORazepam [Ativan] 0.5 mg PO BID PRN #14 tablet 07/24/17 [Rx] amLODIPine [Norvasc] 10 mg PO DAILY #30 tablet 07/24/17 [Rx] Past Medical History - Past Health History Medical/Surgical History: Denies Medical/Surgical History HEENT History: Reports: None Cardiovascular History: Reports: Heart Murmur, Hypertension, Stents Respiratory History: Reports: None Gastrointestinal History: Reports: None Genitourinary History: Reports: None Musculoskeletal History: Reports: None Neurological History: Reports: None Psychiatric History: Reports: None Endocrine/Metabolic History: Reports: None Hematologic History: Reports: None Immunologic History: Reports: None Oncologic (Cancer) History: Reports: None Dermatologic History: Reports: None - Infectious Disease History Infectious Disease History: Reports: None - Past Surgical History Head Surgeries/Procedures: Reports: None Oncologic Surgical History: Reports: None Dermatological Surgical History: Reports: None Social & Family History - Family History Family Medical History: Noncontributory Cardiac: Reports: Bypass, Hypertension Other Cardiac Family History: Mother-CABG; HTN-brother Respiratory: Reports: None GI: Reports: None : Reports: None OBGYN: Reports: None Musculoskeletal: Reports: None Neurological: Reports: None Psychiatric: Reports: None Endocrine/Metabolic: Reports: None Hematologic: Reports: None Immunologic: Reports: None Dermatologic: Reports: None Oncologic: Reports: None - Tobacco Use Smoking Status *Q: Current Every Day Smoker Years of Tobacco use: 1 Packs/Tins Daily: 10 Used Tobacco, but Quit: No Second Hand Smoke Exposure: No - Caffeine Use Caffeine Use: Reports: Coffee - Recreational Drug Use Recreational Drug Use: No ED ROS GENERAL - Review of Systems Review Of Systems: See Below (See history of present illness) ED EXAM, GENERAL - Physical Exam Exam: See Below (See history of present illness) Course - Vital Signs Last Recorded V/S: Last Vital Signs Temp 36.5 C 07/25/17 19:43 Pulse 84 07/25/17 19:43 Resp 18 07/25/17 19:43 BP 182/89 H 07/25/17 19:43 Pulse Ox 98 07/25/17 19:43 Departure - Departure Time of Disposition: 20:06 Disposition: Home, Self-Care 01 Condition: Good Clinical Impression: Anxiety - Discharge Information Referrals: PCP,None [Primary Care Provider] - Additional Instructions: The following information is given to patients seen in the emergency department who are being discharged to home. This information is to outline your options for follow-up care. We provide all patients seen in our emergency department with a follow-up referral. The need for follow-up, as well as the timing and circumstances, are variable depending upon the specifics of your emergency department visit. If you don't have a primary care physician on staff, we will provide you with a referral. We always advise you to contact your personal physician following an emergency department visit to inform them of the circumstance of the visit and for follow-up with them and/or the need for any referrals to a consulting specialist. The emergency department will also refer you to a specialist when appropriate. This referral assures that you have the opportunity for follow-up care with a specialist. All of these measure are taken in an effort to provide you with optimal care, which includes your follow-up. Under all circumstances we always encourage you to contact your private physician who remains a resource for coordinating your care. When calling for follow-up care, please make the office aware that this follow-up is from your recent emergency room visit. If for any reason you are refused follow-up, please contact the [facility] Emergency Department at and asked to speak to the emergency department charge nurse. Follow-up with food handler on the as we discussed Please quit taking supplements until you have cleared those with your food handler Return to ED as needed as discussed
[2017-07-25 22:32] VITALS: BP 162/88
== END 2017-07-25 20:23 | disposition home or self-care (01) ==
LOC: MW.ED 19:30
DX: F41.9 Anxiety disorder, unspecified (principal); I10 Essential (primary) hypertension; F17.210 Nicotine dependence, cigarettes, uncomplicated; Z88.0 Allergy status to penicillin; Z79.899 Other long term (current) drug therapy; Z95.5 Presence of coronary angioplasty implant and graft
CPT/HCPCS: 99283

== ENCOUNTER 2017-08-15 16:10 | Emergency (ER) | payer BC | END 2017-08-15 16:15 | disposition left against medical advice (07) | LOC: MW.ED 16:10 | DX: Z53.21 Procedure and treatment not carried out due to patient leaving prior to being seen by health care provider (principal) ==